=== PATIENT | male | born 1960 | race Caucasian/White ===

== ENCOUNTER 2016-08-26 09:21 | Emergency (ER) | payer SELFPAY ==
[2016-08-26 12:20] VITALS: BP 137/82
== END 2016-08-26 12:20 | disposition home or self-care (01) ==
LOC: ED 09:21
DX: L02.413 Cutaneous abscess of right upper limb (principal); F15.10 Other stimulant abuse, uncomplicated
CPT/HCPCS: J1885; J2001

== ENCOUNTER 2018-11-24 02:07 | Emergency (ER) | payer SELFPAY ==
[~2018-11-24] VITALS: Ht 180.3 cm; Wt 71.2 kg
[2018-11-24 02:25] VITALS: BP 141/81; Ht 180.3 cm; Wt 71.2 kg
== END 2018-11-24 04:21 | disposition left against medical advice (07) ==
LOC: ED 02:07
DX: Z53.21 Procedure and treatment not carried out due to patient leaving prior to being seen by health care provider (principal)

== ENCOUNTER 2020-02-23 08:59 | Emergency (ER) | payer MEDICAID ==
[~2020-02-23] VITALS: Ht 180.3 cm; Wt 71.7 kg
[2020-02-23 09:55] VITALS: Ht 180.3 cm; Wt 71.7 kg
[2020-02-23 11:00] LABS: microscopic required? YES; urine erythrocyte 1+ (NEGATIVE)
[2020-02-23 11:06] LABS: BASOPHIL % 0.9 % (0.2-1.5); CHLORIDE SERUM 101 mmol/L (98-107); PLATELET COUNT 332 x10^3mcL (152-348); POTASSIUM SERUM 3.6 mmol/L (3.5-5.1); RED CELL DISTRIBUTION WIDTH 14.3 % (12.1-16.2)
[2020-02-23 11:12] LABS: CALCIUM 9.4 mg/dL (8.5-10.1); CARBON DIOXIDE 29.8 mmol/L (21-32); GFR1 > 60 mL/min; GLUCOSE SERUM 214 mg/dL (74-106); SODIUM SERUM 139 mmol/L (136-145)
[2020-02-23 11:15] LABS: ALBUMIN 3.4 g/dL (3.4-5.0)
[2020-02-23 11:25] LABS: ALKALINE PHOSPHATASE 76 U/L (46-116); ALT/SGPT 45 U/L (16-63); AST/SGOT 34 U/L (15-37); BILIRUBIN TOTAL 0.73 mg/dL (0.20-1.00); LIPASE 142 IU/L (73-393)
[2020-02-23 11:26] LABS: TOTAL PROTEIN, SERUM 8.9 g/dL (6.4-8.2)
[2020-02-23 14:17] VITALS: BP 115/78
== END 2020-02-23 14:17 | disposition home or self-care (01) ==
LOC: ED 08:59
PROVIDERS: Student in an Organized Health Care Education/Training Program
DX: N12 Tubulo-interstitial nephritis, not specified as acute or chronic (principal); E11.9 Type 2 diabetes mellitus without complications
CPT/HCPCS: J0696; Q9967